=== PATIENT | female | born 1990 | race Two or more races ===

== ENCOUNTER 2025-03-27 00:28 | Emergency (ER) | payer MEDICAID, OTHER ==
[~2025-03-27] VITALS: Ht 154.9 cm; Wt 64.9 kg
--- NOTE | 2025-03-27 00:37 | ED.PDOC ---
HPI Comments PT PRESENTED TO ED FOR CHEST PRESSURE, SOB, N/V X2 DAYS. PT STATED "IT FEELS LIKE AN ELEPHANT ON MY CHEST". PT WAS SEEN AT URGENT CARE, DX WITH UTI, GIVEN TX AND D/C'D EARIER TONIGHT. GCS-15, ALL VSS Time Seen by MD: 00:31 Reviewed Notes: Nurses Notes, Medications, Allergies Allergies: Coded Allergies: No Known Drug Allergy (Verified Allergy, Unknown, 03/27/25) Home Meds Active Scripts Ondansetron Odt 4MG Tab (ZOFRAN PO) 4 Mg Tb, 4 MG PO TID PRN for 4 Days, #12 TAB ODT TAB-DISSOLVE IN MOUTH, THEN SWALLOW Prov:ANNY ELP 03/27/25 Pantoprazole Sodium Sesquihydr (Protonix) 40 Mg Tab, 40 MG PO DAILY for 14 Days, #14 TAB Prov:ANNY EL [facility] 03/27/25 Information Source: Patient Past Medical History PAST MEDICAL HISTORY: Denies Surgical History: Denies all surgeries [employer] History: No Pertinent [employer] History Family History Family History: Reviewed,noncontributory to illness Constitutional: denies: chills, diaphoresis, fatigue, fever, malaise, sweats, weakness, others EENTM: denies: blurred vision, double vision, ear bleeding, ear discharge, ear drainage, ear pain, ear ringing, eye pain, eye redness, hearing loss, mouth pain, mouth swelling, nasal discharge, nose bleeding, nose congestion, nose pain, photophobia, tearing, throat pain, throat swelling, voice changes, others Respiratory: denies: cough, hemoptysis, orthopnea, SOB at rest, shortness of breath, SOB with excertion, stridor, wheezing, others Cardiovascular: reports: chest pain; denies: dizzy spells, diaphoresis, Dyspnea on exertion, edema, irregular heart beat, left arm pain, lightheadedness, palpitations, PND, syncope, others Gastrointestinal: reports: nausea, vomiting; denies: abdomen distended, abdominal pain, blood streaked bowels, constipated, diarrhea, dysphagia, difficulty swallowing, hematemesis, melena, poor appetite, poor fluid intake, rectal bleeding, rectal pain, others Genitourinary: denies: abnormal vagina bleeding, burning, dyspareunia, dysuria, flank pain, frequency, hematuria, incontinence, pain, , vagina discharge, urgency, others Neurological: denies: dizziness, fainting, headache, left sided numbness, left sided weakness, numbness, paresthesia, pre-existing deficit, right sided numbness, right sided weakness, seizure, speech problems, tingling, tremors, weakness, others Musculoskeletal: denies: back pain, gout, joint pain, joint swelling, muscle pain, muscle stiffness, neck pain, others Integumetry: denies: bruises, change in color, change in hair/nails, dryness, laceration, lesions, lumps, rash, wounds, others Allergic/Immunocompromised: denies: Difficulty Healing, Frequent Infections, H saima, Itching, others Hematologic/Lymphatic: denies: anemia, blood clots, easy bleeding, easy bruising, swollen glands, others Endocrine: denies: excessive hunger, excessive sweating, excessive thirst, excessive urination, flushing, intolerance to cold, intolerance to heat, unexplained weight gain, unexplained weight loss, others Psychiatric: denies: anxiety, bipolar disorder, depression, hopeless, panic disorder, schizophrenia, sleepless, suicidal, others Physical Exam General Appearance: No Apparent Distress, Normal HEENT: Normal ENT Inspection, Pharynx Normal, TMs Normal Neck: Full Range of Motion, Non-Tender Respiratory: Lungs Clear, No Respiratory Distress, Normal Breath Sounds Cardiovascular: No Edema, No JVD, No Murmur, No Gallop, Normal Peripheral Pulses, Regular Rate/Rhythm Breast Exam: Deferred Gastrointestinal: No Organomegaly, Non Tender, No Pulsatile Mass, Normal Bowel Sounds, Soft Genitalia: Deferred Pelvic: Deferred Rectal: Deferred Extremities: No calf tenderness, Normal capillary refill, Normal inspection, Normal range of motion, Non-tender, No pedal edema Musculoskeletal : Apperance: Normal Neurologic: Alert, No Motor Deficits, Normal Affect, Normal Mood, No Sensory Deficits Cerebellar Function: Normal Reflexes: Normal Skin: Dry, Normal Color, Warm Lymphatic: No Adenopathy Was a procedure done? Was a procedure done?: No CP Differential Dx Differential Diagnosis: Anxiety / Panic Attack, TX, PVC's Differential Diagnosis: HTN Essential Differential Diagnosis: Esophageal reflux/spasm, Gastritis, Myocardial Infarction, Pericarditis, Pneumonia, Pneumothorax, Pulmonary Embolus X-Ray, Labs, Meds, VS Vital Signs Date Time Temp Pulse Resp B/P (MAP) Pulse Ox O2 Delivery O2 Flow Rate FiO2 03/27/25 02:47 98.1 84 20 138/78 (98) 97 98.1 03/27/25 02:45 Room Air* 0 21 03/27/25 00:52 90 03/27/25 00:37 98.6 104 22 141/80 (100) 100 98.6 Lab Test 03/27/25 01:34 03/27/25 00:45 Range/Units Urine Color Light-yellow Yellow Urine Clarity Clear Clear Urine pH 6.5 5.0-9.0 Urine Specific [place] 1.015 1.001-1.035 Urine Protein Negative Negative Urine Ketones 4+ H Negative Urine Blood Trace H Negative /uL Urine Nitrite Negative Negative Urine Bilirubin Negative Negative Urine Urobilinogen Normal Negative mg/dL Urine Leukocyte Esterase 2+ Negative /uL Urine RBC 7 0 - 4 /hpf Urine Microscopic WBC 3 0-5 /HPF Urine Squamous Epithelial Cells Few <5 /hpf Urine Bacteria Few H None Seen /hpf Urine Glucose Normal Normal mg/dL Urine Test Negative Negative White Blood Count 14.7 H 4.4-10.8 10^3/uL Red Blood Count 4.18 4.0-5.20 10^6/uL Hemoglobin 13.4 12.2-16.2 g/dL Hematocrit 38.6 36.0-46.0 % Mean Corpuscular Volume 92.4 80.0-100.0 fL Mean Corpuscular Hemoglobin 32.1 H 28.0-32.0 pg Mean Corpuscular Hemoglobin Concent 34.7 32.0-36.0 g/dL Red Cell Distribution Width 12.9 11.8-14.3 % Platelet Count 255 140-450 10^3/uL Mean Platelet Volume 8.9 6.9-10.8 fL Neutrophils (%) (Auto) 76.0 37.0-80.0 % Lymphocytes (%) (Auto) 18.0 10.0-50.0 % Monocytes (%) (Auto) 5.5 0.0-12.0 % Eosinophils (%) (Auto) 0.2 0.0-7.0 % Basophils (%) (Auto) 0.3 0.0-2.0 % Neutrophils # (Auto) 11.2 H 1.6-8.6 10 ^3/uL Lymphocytes # (Auto) 2.7 0.4-5.4 10 ^3/uL Monocytes # (Auto) 0.8 0-1.3 10 ^3/uL Eosinophils # (Auto) 0 0-0.8 10 ^3/uL Basophils # (Auto) 0 0-0.2 10 ^3/uL Nucleated Red Blood Cells 0.0 % Sodium Level 139 136-145 mmol/L Potassium Level 3.3 L 3.5-5.1 mmol/L Chloride Level 105 98-107 mmol/L Carbon Dioxide Level 22 20-31 mmol/L Anion Gap 12 5-15 Blood Urea Nitrogen 7 L 9-23 mg/dL Creatinine 0.70 0.550-1.02 mg/dL Glomerular Filtration Rate Calc 117 >90 mL/min BUN/Creatinine Ratio 10.0 10.0-20.0 Serum Glucose 110 H 74-106 mg/dL Calcium Level 9.6 8.7-10.4 mg/dL Total Bilirubin 1.2 H 0.2-1.0 mg/dL Aspartate Amino Transferase (AST) 21 13-40 U/L Alanine Aminotransferase (ALT) 18 7-40 U/L Alkaline Phosphatase 54 46-116 U/L Troponin I High Sensitivity < 3 L </=34 ng/L Total Protein 7.2 5.7-8.2 g/dL Albumin 4.7 3.2-4.8 g/dL X-Ray, Labs, Meds, VS Comment Patient given GI cocktail and Ativan 0.5 IM. Reports improvement requesting discharge at this time patient discharged with . Script trial of Protonix and Zofran. Advised to continue antibiotics she was prescribed at urgent care for UTI. Slight bump in white blood cell count likely secondary to UTI. Advised to rest increase p.o. fluids with electrolytes avoid caffeine. Advised to follow up with her PCP in 2-3 days ER return precautions given patient indicates understanding agrees with discharge plan of care Chest x-ray reviewed by this provider no acute cardiopulmonary finding. Pending chest x-ray for several hours patient requesting to be discharged per radiology the computer system is down in radiologist unable to read at this time. Troponin negative. EKG shows no acute ectopy or ST elevation CMP within normal limits serum negative. White blood cell count [id number] likely secondary to UTI Images Reviewed?: Images reviewed and evaluated by me Time of 1ST Reevaluation: 00:32 Reevaluation 1ST: Unchanged Time of 2ND Reevaluation: 02:46 Reevaluation 2ND: Improved Patient Education/Counseling: Diagnosis, Treatment, Prognosis, Need For Follow Up Family Education/Counseling: Diagnosis, Treatment, Prognosis, Need For Follow Up SEPSIS Sepsis Screen Physician Orders Electrocardigram (03/27/25 00:36) Chest Two Views Routine (03/27/25 00:37) Vital Signs Date Time Temp Pulse Resp B/P (MAP) Pulse Ox O2 Delivery O2 Flow Rate FiO2 03/27/25 02:47 98.1 84 20 138/78 (98) 97 98.1 03/27/25 02:45 Room Air* 0 21 03/27/25 00:52 90 03/27/25 00:37 98.6 104 22 141/80 (100) 100 98.6 Laboratory Tests Test 03/27/25 00:45 White Blood Count 14.7 10^3/uL (4.4-10.8) H Departure 1 Departure Time of Disposition: 02:46 Impression: Primary Impression: UTI (urinary tract infection) Qualified Codes: N30.00 - Acute cystitis without hematuria Additional Impressions: GERD (gastroesophageal reflux disease) Qualified Codes: K21.9 - Gastro-esophageal reflux disease without esophagitis Anxiety Disposition: 04 INTERMEDIATE CARE FACILITY Condition: Stable e-Prescriptions Ondansetron Odt 4MG Tab (ZOFRAN PO) 4 Mg Tb 4 MG PO TID PRN for 4 Days, #12 TAB ODT TAB-DISSOLVE IN MOUTH, THEN SWALLOW Prov: ANNY ELP 03/27/25 Pantoprazole Sodium Sesquihydr (Protonix) 40 Mg Tab 40 MG PO DAILY for 14 Days, #14 TAB Prov: ANNY EL 03/27/25 Discharged With: Significant Other Critical Care Note Critical Care Time?: No Stability Stability form required: No Heart Score Heart Score: Heart Score Response (Comments) Value History Slightly Suspicious 0 EKG Normal 0 Age <45 0 Risk Factors No known risk factors 0 Troponin Normal limit 0 Total 0 ANNY ELP Mar 27, 2025 00:36
[2025-03-27] MEDS: ONDANSETRON HCL 4 MG/2 ML VIAL IM ONE (00:45)
[2025-03-27 01:03] LABS: Hematocrit 38.6 % (36.0-46.0); Hemoglobin 13.4 g/dL (12.2-16.2); Mean Corpuscular Hemoglobin 32.1 pg (28.0-32.0); Mean Corpuscular Volume 92.4 fL (80.0-100.0); Nucleated Red Blood Cells % 0.0 %
[2025-03-27 01:12] LABS: Alanine Aminotransferase 18 U/L (7-40); Albumin 4.7 g/dL (3.2-4.8); Alkaline Phosphatase 54 U/L (46-116); Anion Gap 12 (5-15); BUN/Creatinine Ratio 10.0 (10.0-20.0); Calcium 9.6 mg/dL (8.7-10.4); Carbon Dioxide 22 mmol/L (20-31); Chloride 105 mmol/L (98-107); Sodium 139 mmol/L (136-145); Total Protein 7.2 g/dL (5.7-8.2)
[2025-03-27 01:13] LABS: Bilirubin, Total 1.2 mg/dL (0.2-1.0); Blood Urea Nitrogen 7 mg/dL (9-23); Glucose 110 mg/dL (74-106); Potassium 3.3 mmol/L (3.5-5.1)
[2025-03-27 01:43] LABS: Urine Protein, UAD Negative (Negative)
[2025-03-27 02:47] VITALS: BP 138/78; PULSE 84; RESP 20; TEMP 98.1; O2SAT 97
[2025-03-27] MEDS ORDERED: PANT40TA2 PO (02:49)
[2025-03-27] MEDS ORDERED: ZOFR4T PO (02:49)
[2025-03-27] MEDS: DONNATAL 5ml ORAL Elix (BELLADONNA ALK-PHENOBARB) PO ONE (02:54)
[2025-03-27] MEDS: LIDOCAINE VISCOUS 2% 15ML UD PO ONE (02:54)
[2025-03-27] MEDS: MAALOX PLUS or MAALOX 30 ML PO ONE (02:54)
[2025-03-27] MEDS: LORazepam 2MG/ML-1ML VIAL IM ONE (02:55)
--- NOTE | 2025-03-27 04:13 | DVH ---
CHEST RADIOGRAPH Indication: chest pain and sob Technique: Frontal and lateral view of the chest was obtained Comparison: None FINDINGS: Lines and Tubes: None Lungs: Clear Pleura: No effusion. No pneumothorax. Cardiomediastinal contours: Unremarkable Bones: Unremarkable IMPRESSION: 1. No evidence of acute disease.
--- NOTE | 2025-03-30 17:35 | ECG ---
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
== END 2025-03-27 03:02 | disposition home or self-care (01) ==
LOC: ER 00:28
DX: N39.0 Urinary tract infection, site not specified (principal); K21.9 Gastro-esophageal reflux disease without esophagitis; F41.9 Anxiety disorder, unspecified; Z79.899 Other long term (current) drug therapy
CPT/HCPCS: 36415; 71046; 80053; 81001; 81025; 84484; 85025; 93005; 96372; 99285; J2060; J2405